=== PATIENT | male | born 1970 | race Caucasian/White ===

== ENCOUNTER 2019-11-07 14:08 | Outpatient (CLI) | payer OTHER, SELFPAY ==
[2019-11-07 14:30] LABS: Creatinine Urine 89.21 mg/dL (40-278)
[2019-11-07 14:31] LABS: MALB Creatinine Ratio 76.6 mg/g (0-30); Microalbumin Urine Random 68.4 mg/L
[2019-11-07 14:33] LABS: Hemoglobin A1C 12.4 % (<5.7)
[2019-11-07 15:38] LABS: Alanine Aminotransferase 44 U/L (16-63); Albumin Level 3.5 g/dL (3.4-5.0); Alkaline Phosphatase 105 U/L (46-116); Anion Gap 16.2 mmol/L (7-16); Aspartate Amino Transferase 19 U/L (15-37); Bilirubin,Total 0.4 mg/dL (0.00-1.00); Blood Urea Nitrogen 18 mg/dL (7-18); Calcium 8.9 mg/dL (8.5-10.1); Carbon Dioxide 25 mmol/L (21-32); Chloride 103 mmol/L (98-108); Cholesterol 212 mg/dL (0-200); Estimated Glomerular Filt Rate > 60; Glucose 313 mg/dL (70-99); HDL Direct 30 mg/dL (40-60); Osmolality Calculated 303 mOsm/kg (285-295); Potassium 4.2 mmol/L (3.5-5.1); Sodium 140 mmol/L (136-145); Total Protein 7.2 g/dL (6.4-8.2)
[2019-11-07 16:09] LABS: LDL Cholesterol Calculated 83 mg/dL (<130)
[2019-11-07 16:10] LABS: Triglycerides 495 mg/dL (0-150)
[2019-11-07 16:11] LABS: LDL Cholesterol Direct 90 mg/dL (0-130)
== END 2019-11-07 14:09 | disposition home or self-care (01) ==
LOC: CHSLAB 14:11
PROVIDERS: PCP Family Medicine; Visit Provider Family Medicine
DX: E11.9 Type 2 diabetes mellitus without complications (principal)
CPT/HCPCS: 36415; 80053; 80061; 82043; 83036; 83721

== ENCOUNTER 2020-03-26 08:53 | Outpatient (CLI) | payer OTHER, SELFPAY ==
[2020-03-26 09:14] LABS: Hemoglobin A1C 11.5 % (<5.7)
== END 2020-03-26 08:54 | disposition home or self-care (01) ==
LOC: CHSLAB 08:55
PROVIDERS: PCP Family Medicine; Visit Provider Family Medicine
DX: E11.9 Type 2 diabetes mellitus without complications (principal)
CPT/HCPCS: 36415; 83036

== ENCOUNTER 2020-05-08 14:03 | Outpatient (CLI) | payer OTHER, SELFPAY ==
[2020-05-10 03:00] LABS: SARS-CoV-2 RNA PCR Positive
== END 2020-05-08 14:04 | disposition home or self-care (01) ==
LOC: CHSLAB 14:05
PROVIDERS: PCP Nurse Practitioner Family; Visit Provider Nurse Practitioner Family
DX: U07.1 COVID-19 (principal)
CPT/HCPCS: 87635; C9803; U0003